=== PATIENT | male | born 1940 | race Caucasian/White ===

== ENCOUNTER → 2016-12-08 | Day surgery (SDC) | payer MEDICARE, MEDICAID ==
[2016-12-08] VITALS (9 sets, daily range): BP systolic 187–214; BP diastolic 57–81
[~2016-12-08] MED LIST: ALPR-340 PO; ASPI-785 PO; CLON0.1T PO; CLOP75TA2 PO; DOXA8TAB81 PO; EZET1TAB7 PO; FENTANYL CITRATE/PF 50MCG/ML 2ML VIAL IV ONE; IOHEXOL-300 100 ML BOTTLE ONE; LAMO100T PO; METO5TAB2 PO; MINO2.5T19 PO; NAPR-679 PO; PHEN50TA PO; SEVE800T PO; SODIUM CHLORIDE 0.9% 10ML VIAL ONE
[2016-12-08 08:55] LABS: BASOPHILS % 0.9 % (0.0-2.0); EOSINOPHILS % 4.7 % (0.0-5.0); HEMATOCRIT. 32.9 % (42.0-52.0); HEMOGLOBIN. 11.5 g/dL (14.0-18.0); LYMPHOCYTES % 25.1 % (20.0-50.0); MEAN CORPUSCULAR HEMOGLOBIN 33.5 pg (28.0-32.0); MEAN CORPUSCULAR HGB CONC 34.9 g/dL (31.0-37.0); MEAN CORPUSCULAR VOLUME 95.9 fL (80.0-94.0); MEAN PLATELET VOLUME 9.1 fl (7.4-10.4); MONOCYTES % 11.3 % (2.0-8.0); PLATELET 159 x1000/uL (130-400); RED BLOOD CELL COUNT 3.43 mill/uL (4.7-6.1); RED CELL DISTRIBUTION WIDTH 13.5 % (11.6-14.6); WHITE BLOOD COUNT 4.5 x1000/uL (4.5-11.0)
[2016-12-08 09:04] LABS: INR 1.1; PROTHROMBIN TIME 11.3 sec
== END | disposition home or self-care (01) ==
LOC: ANGIO 08:40
PROVIDERS: ATTEND Specialist
DX: I12.0 Hypertensive chronic kidney disease with stage 5 chronic kidney disease or end stage renal disease (principal); N18.6 End stage renal disease; E11.9 Type 2 diabetes mellitus without complications; E78.3 Hyperchylomicronemia
CPT/HCPCS: 36415; 36901; 36907; 82947; 84132; 85025; 85610; 85730; A4216; C1725; C1766; C1769; J3010; Q9967

== ENCOUNTER → 2017-02-23 | Day surgery (SDC) | payer MEDICARE, MEDICAID ==
[~2017-02-23] VITALS: Ht 175.3 cm; Wt 82.6 kg
[2017-02-23] VITALS (9 sets, daily range): BP systolic 139–193; BP diastolic 52–64
[~2017-02-23] MED LIST changes: +FENTANYL CITRATE/PF 50MCG/ML 2ML VIAL ONE; +LIDOCAINE HCL 1% 20ML VIAL (Pyxis) INJ ONE; +SODIUM BICARBONATE 4% (2.4MEQ) 5ML VIAL IV ONE; -SODIUM CHLORIDE 0.9% 10ML VIAL ONE
[2017-02-23 08:21] LABS: BASOPHILS % 0.8 % (0.0-2.0); EOSINOPHILS % 0.7 % (0.0-5.0); HEMATOCRIT. 35.1 % (42.0-52.0); LYMPHOCYTES % 16.5 % (20.0-50.0); MEAN CORPUSCULAR HEMOGLOBIN 32.5 pg (28.0-32.0); MEAN CORPUSCULAR VOLUME 94.8 fL (80.0-94.0); MEAN PLATELET VOLUME 8.1 fl (7.4-10.4); MONOCYTES % 5.4 % (2.0-8.0); NEUTROPHILS % 76.6 % (40.0-76.0); PLATELET 233 x1000/uL (130-400); RED CELL DISTRIBUTION WIDTH 14.1 % (11.6-14.6)
[2017-02-23 08:29] LABS: INR 1.1; PARTIAL THROMBOPLASTIN TIME 28.3 sec (24.0-34.0); PROTHROMBIN TIME 11.3 sec
== END | disposition home or self-care (01) ==
LOC: RADANGIO 07:12
PROVIDERS: ATTEND Specialist
DX: Z45.2 Encounter for adjustment and management of vascular access device (principal); I12.0 Hypertensive chronic kidney disease with stage 5 chronic kidney disease or end stage renal disease; E11.22 Type 2 diabetes mellitus with diabetic chronic kidney disease; J44.9 Chronic obstructive pulmonary disease, unspecified; N18.6 End stage renal disease; Z99.2 Dependence on renal dialysis
CPT/HCPCS: 36415; 36902; 36907; 71020; 82947; 84132; 85025; 85610; 85730; 99152; 99153; C1725; C1766; C1769; J1644; J3010; J3490; L8514; Q9967

== ENCOUNTER → 2017-05-04 | Day surgery (SDC) | payer MEDICARE, MEDICAID ==
[2017-05-04] VITALS (10 sets, daily range): BP systolic 154–218; BP diastolic 53–70
[~2017-05-04] VITALS: Ht 175.3 cm; Wt 82.1 kg
[~2017-05-04] MED LIST changes: +CEFAZOLIN 1000MG PREMIX 50 ML IV ONE; +CLOP75TA16 PO; -CLOP75TA2 PO; +FENTANYL CITRATE/PF 50MCG/ML 2ML VIAL IV SCH; +HEPARIN 1000 UNITS/ML 10ML ONE; +HEPARIN 5000 UNITS/ML VIAL IV ONE; +LIP40 PO; +REN800 PO; -SEVE800T PO
[2017-05-04 09:46] LABS: BASOPHILS % 1.1 % (0.0-2.0); EOSINOPHILS % 3.4 % (0.0-5.0); HEMATOCRIT. 34.1 % (42.0-52.0); HEMOGLOBIN. 11.4 g/dL (14.0-18.0); MEAN CORPUSCULAR HEMOGLOBIN 31.8 pg (28.0-32.0); MEAN CORPUSCULAR VOLUME 94.9 fL (80.0-94.0); MONOCYTES % 6.6 % (2.0-8.0); NEUTROPHILS % 59.9 % (40.0-76.0); PLATELET 161 x1000/uL (130-400); RED BLOOD CELL COUNT 3.59 mill/uL (4.7-6.1); RED CELL DISTRIBUTION WIDTH 15.1 % (11.6-14.6)
[2017-05-04 09:55] LABS: INR 1.1; PARTIAL THROMBOPLASTIN TIME 28.7 sec (23.4-31.0)
== END | disposition home or self-care (01) ==
LOC: RADANGIO 09:01
PROVIDERS: ATTEND Specialist
DX: T82.49XA Other complication of vascular dialysis catheter, initial encounter (principal); Y83.9 Surgical procedure, unspecified as the cause of abnormal reaction of the patient, or of later complication, without mention of misadventure at the time of the procedure; Y92.89 Other specified places as the place of occurrence of the external cause
CPT/HCPCS: 36415; 36902; 36907; 76937; 82947; 82962; 84132; 85025; 85610; 85730; 99152; 99153; C1725; C1769; J0690; J1644; J3490; Q9967; J3010

== ENCOUNTER → 2017-07-20 | Day surgery (SDC) | payer MEDICARE, MEDICAID ==
[~2017-07-20] VITALS: Ht 175.3 cm; Wt 79.8 kg
[2017-07-20] VITALS (9 sets, daily range): BP systolic 171–214; BP diastolic 57–67
[~2017-07-20] MED LIST changes: -CEFAZOLIN 1000MG PREMIX 50 ML IV ONE; -HEPARIN 1000 UNITS/ML 10ML ONE; -HEPARIN 5000 UNITS/ML VIAL IV ONE
[2017-07-20 09:37] LABS: BASOPHILS % 1.4 % (0.0-2.0); EOSINOPHILS % 4.4 % (0.0-5.0); HEMATOCRIT. 39.3 % (42.0-52.0); HEMOGLOBIN. 13.3 g/dL (14.0-18.0); LYMPHOCYTES % 23.8 % (20.0-50.0); MEAN CORPUSCULAR HEMOGLOBIN 32.3 pg (28.0-32.0); MEAN CORPUSCULAR VOLUME 95.4 fL (80.0-94.0); MEAN PLATELET VOLUME 8.2 fl (7.4-10.4); MONOCYTES % 9.5 % (2.0-8.0); NEUTROPHILS % 60.9 % (40.0-76.0); PLATELET 206 x1000/uL (130-400); RED BLOOD CELL COUNT 4.13 mill/uL (4.7-6.1)
[2017-07-20 09:49] LABS: INR 1.1; PARTIAL THROMBOPLASTIN TIME 28.3 sec (23.4-31.0)
== END | disposition home or self-care (01) ==
LOC: RAD 09:07
PROVIDERS: ATTEND Specialist
DX: N18.6 End stage renal disease (principal); T82.858A Stenosis of other vascular prosthetic devices, implants and grafts, initial encounter; Y83.8 Other surgical procedures as the cause of abnormal reaction of the patient, or of later complication, without mention of misadventure at the time of the procedure; Y92.89 Other specified places as the place of occurrence of the external cause
CPT/HCPCS: 36415; 36901; 36907; 82947; 84132; 85025; 85610; 85730; 99152; 99153; C1725; C1769; J1644; J3010; J3490; Q9967; J7050

== ENCOUNTER → 2017-11-11 | Day surgery (SDC) | payer MEDICARE, MEDICAID ==
[~2017-11-11] VITALS: Ht 172.7 cm; Wt 78.9 kg
[2017-11-11] VITALS (11 sets, daily range): BP systolic 171–191; BP diastolic 54–64
[~2017-11-11] MED LIST changes: -FENTANYL CITRATE/PF 50MCG/ML 2ML VIAL IV SCH; -LIDOCAINE HCL 1% 20ML VIAL (Pyxis) INJ ONE
[2017-11-11 07:29] LABS: BASOPHILS % 0.9 % (0.0-2.0); EOSINOPHILS % 4.6 % (0.0-5.0); HEMATOCRIT. 37.2 % (42.0-52.0); HEMOGLOBIN. 12.3 g/dL (14.0-18.0); LYMPHOCYTES % 24.8 % (20.0-50.0); MEAN CORPUSCULAR HEMOGLOBIN 31.2 pg (28.0-32.0); MEAN CORPUSCULAR VOLUME 94.1 fL (80.0-94.0); MEAN PLATELET VOLUME 8.6 fl (7.4-10.4); MONOCYTES % 10.3 % (2.0-8.0); NEUTROPHILS % 59.4 % (40.0-76.0); PLATELET 153 x1000/uL (130-400); RED BLOOD CELL COUNT 3.96 mill/uL (4.7-6.1); RED CELL DISTRIBUTION WIDTH 16.6 % (11.6-14.6)
[2017-11-11 07:33] LABS: INR 1.1; PARTIAL THROMBOPLASTIN TIME 28.5 sec (23.4-31.0); PROTHROMBIN TIME 11.3 sec (9.4-11.6)
== END | disposition home or self-care (01) ==
LOC: RADANGIO 07:02
PROVIDERS: ATTEND Specialist
DX: I82.B29 Chronic embolism and thrombosis of unspecified subclavian vein (principal); E11.22 Type 2 diabetes mellitus with diabetic chronic kidney disease; I12.0 Hypertensive chronic kidney disease with stage 5 chronic kidney disease or end stage renal disease; N18.6 End stage renal disease; Z95.1 Presence of aortocoronary bypass graft
CPT/HCPCS: 36415; 36902; 36907; 82947; 84132; 85025; 85610; 85730; 93454; C1725; C1766; C1769; C1887; J1644; J3010; J3490; Q9967; J7050

== ENCOUNTER → 2018-01-26 | Outpatient (CLI) | payer MEDICARE, MEDICAID ==
[~2018-01-26] MED LIST changes: -EZET1TAB7 PO; -FENTANYL CITRATE/PF 50MCG/ML 2ML VIAL IV ONE; -FENTANYL CITRATE/PF 50MCG/ML 2ML VIAL ONE; -IOHEXOL-300 100 ML BOTTLE ONE; -SODIUM BICARBONATE 4% (2.4MEQ) 5ML VIAL IV ONE; +TRAV2.5D EACHEYE
== END | disposition home or self-care (01) ==
LOC: US 16:09
PROVIDERS: ATTEND Internal Medicine Gastroenterology
DX: K80.20 Calculus of gallbladder without cholecystitis without obstruction (principal); R16.0 Hepatomegaly, not elsewhere classified; K76.89 Other specified diseases of liver
CPT/HCPCS: 76700

== ENCOUNTER → 2018-03-24 | Day surgery (SDC) | payer MEDICARE, MEDICAID ==
[2018-03-24] VITALS (16 sets, daily range): BP systolic 162–190; BP diastolic 51–68
[~2018-03-24] VITALS: Ht 170.2 cm; Wt 77.6 kg
[~2018-03-24] MED LIST changes: +CEFAZOLIN 1000MG PREMIX 50 ML IV ONE; +FENTANYL CITRATE/PF 50MCG/ML 2ML VIAL IV ONE; +FENTANYL CITRATE/PF 50MCG/ML 2ML VIAL ONE; +HEPARIN 1000 UNITS/ML 10ML IV ONE; +HEPARIN 1000 UNITS/ML 10ML ONE; +HEPARIN 5000 UNITS/ML VIAL IV ONE; +IOHEXOL-300 100 ML BOTTLE ONE; +LIDOCAINE HCL 1% 20ML VIAL (Pyxis) INJ ONE; +SODIUM BICARBONATE 4% (2.4MEQ) 5ML VIAL IV ONE
[2018-03-24 09:09] LABS: EOSINOPHILS % 3.5 % (0.0-5.0); HEMATOCRIT. 35.4 % (42.0-52.0); HEMOGLOBIN. 11.8 g/dL (14.0-18.0); LYMPHOCYTES % 19.8 % (20.0-50.0); MEAN CORPUSCULAR HEMOGLOBIN 31.4 pg (28.0-32.0); MEAN CORPUSCULAR VOLUME 94.4 fL (80.0-94.0); NEUTROPHILS % 66.7 % (40.0-76.0); PLATELET 164 x1000/uL (130-400); RED BLOOD CELL COUNT 3.75 mill/uL (4.7-6.1); RED CELL DISTRIBUTION WIDTH 17.6 % (11.6-14.6)
[2018-03-24 09:19] LABS: INR 1.1; PARTIAL THROMBOPLASTIN TIME 28.1 sec (23.4-31.0)
== END | disposition home or self-care (01) ==
LOC: ANGIO 08:16
PROVIDERS: ATTEND Specialist
DX: I87.1 Compression of vein (principal); I13.11 Hypertensive heart and chronic kidney disease without heart failure, with stage 5 chronic kidney disease, or end stage renal disease; E78.5 Hyperlipidemia, unspecified; E11.22 Type 2 diabetes mellitus with diabetic chronic kidney disease; G47.30 Sleep apnea, unspecified; M48.061 Spinal stenosis, lumbar region without neurogenic claudication; N18.6 End stage renal disease; Z88.8 Allergy status to other drugs, medicaments and biological substances; Z95.1 Presence of aortocoronary bypass graft; Z98.42 Cataract extraction status, left eye; Z98.41 Cataract extraction status, right eye
CPT/HCPCS: 36415; 36902; 36907; 76937; 82947; 82962; 84132; 85025; 85610; 85730; 99152; 99153; C1725; C1766; C1769; J0690; J1644; J3010; J3490; Q9967; J7050

== ENCOUNTER → 2018-04-10 | Outpatient (CLI) | payer MEDICARE, MEDICAID ==
[~2018-04-10] MED LIST changes: -CEFAZOLIN 1000MG PREMIX 50 ML IV ONE; -FENTANYL CITRATE/PF 50MCG/ML 2ML VIAL IV ONE; -FENTANYL CITRATE/PF 50MCG/ML 2ML VIAL ONE; -HEPARIN 1000 UNITS/ML 10ML IV ONE; -HEPARIN 1000 UNITS/ML 10ML ONE; -HEPARIN 5000 UNITS/ML VIAL IV ONE; -IOHEXOL-300 100 ML BOTTLE ONE; -LIDOCAINE HCL 1% 20ML VIAL (Pyxis) INJ ONE; -SODIUM BICARBONATE 4% (2.4MEQ) 5ML VIAL IV ONE
== END | disposition home or self-care (01) ==
LOC: RAD 10:49
PROVIDERS: ATTEND Internal Medicine Critical Care Medicine
DX: I70.0 Atherosclerosis of aorta (principal); I12.0 Hypertensive chronic kidney disease with stage 5 chronic kidney disease or end stage renal disease; E11.22 Type 2 diabetes mellitus with diabetic chronic kidney disease; N18.6 End stage renal disease
CPT/HCPCS: 71046

== ENCOUNTER → 2018-07-14 | Day surgery (SDC) | payer MEDICARE, MEDICAID ==
[2018-07-14] VITALS (11 sets, daily range): BP systolic 157–187; BP diastolic 54–75
[~2018-07-14] VITALS: Ht 170.2 cm; Wt 67.1 kg
[~2018-07-14] MED LIST changes: +FENTANYL CITRATE/PF 50MCG/ML 2ML VIAL IV ONE; +FENTANYL CITRATE/PF 50MCG/ML 2ML VIAL ONE; +IOHEXOL-300 100 ML BOTTLE ONE; +LIDOCAINE HCL 1% 20ML VIAL (Pyxis) INJ ONE; +SODIUM BICARBONATE 4% (2.4MEQ) 5ML VIAL IV ONE
== END | disposition home or self-care (01) ==
LOC: RADANGIO 09:01
PROVIDERS: ATTEND Specialist
DX: I87.1 Compression of vein (principal); Z79.82 Long term (current) use of aspirin; Z79.899 Other long term (current) drug therapy
CPT/HCPCS: 36415; 36902; 82947; 84132; 99152; 99153; C1766; C1769; J1644; J3010; J3490; Q9967; 36905; 36907; C1725

== ENCOUNTER 2018-08-23 06:17 | Day surgery (SDC) | payer MEDICARE, MEDICAID ==
[~2018-08-23] VITALS: Ht 172.7 cm; Wt 74.4 kg
[~2018-08-23 06:17] MED LIST changes: +ASPI-1159 PO; -ASPI-785 PO; -FENTANYL CITRATE/PF 50MCG/ML 2ML VIAL IV ONE; -FENTANYL CITRATE/PF 50MCG/ML 2ML VIAL ONE; +FOLI1TAB87 PO; +INSNOV SUBCUT; -IOHEXOL-300 100 ML BOTTLE ONE; +LAMO100T65 PO; -LIDOCAINE HCL 1% 20ML VIAL (Pyxis) INJ ONE; +OMEP40CA34 PO; +PHEN100C12 PO; -PHEN50TA PO; -SODIUM BICARBONATE 4% (2.4MEQ) 5ML VIAL IV ONE
[2018-08-23] MEDS ORDERED: SODIUM CHLORIDE 0.9% 500 ML IV ONE (06:40)
[2018-08-23] MEDS ORDERED: MIDAZOLAM HCL 2 MG/2 ML VIAL ONE (07:25)
[2018-08-23] MEDS ORDERED: FENTANYL CITRATE/PF 50MCG/ML 2ML VIAL ONE (07:25)
[2018-08-23] MEDS ORDERED: PROPOFOL 200MG/20ML VIAL IV ONE ×2 (07:25→08:40)
[2018-08-23] MEDS ORDERED: DEXAMETHASONE 4MG/ML 1ML VIAL ONE (07:26)
[2018-08-23] MEDS ORDERED: ONDANSETRON HCL 4MG/2ML INJ ONE (07:26)
[2018-08-23] MEDS ORDERED: SKIN ADHESIVE 0.7 GM EA TOP ONE (07:27)
[2018-08-23] MEDS ORDERED: BUPIVACAINE HCL 0.5% (5MG/ML) 50ML ONE (07:28)
[2018-08-23] MEDS ORDERED: LIDOCAINE HCL/PF 1% 10 MG/ML 5ML VIAL ONE (07:49)
[2018-08-23] MEDS ORDERED: SODIUM CHLORIDE 0.9% 10ML VIAL ONE ×2 (07:49→08:00)
[2018-08-23] MEDS ORDERED: EPHEDRINE SULFATE 50MG/ML VIAL ONE (07:49)
[2018-08-23] MEDS ORDERED: HYDROMORPHONE HCL/PF 2MG/ML CPJ IV PRN (08:00)
[2018-08-23] MEDS ORDERED: LABETALOL HCL 20MG/4ML CARPUJECT IV PRN (08:00)
[2018-08-23] MEDS ORDERED: CEFAZOLIN SODIUM 1000MG/VIAL ONE (08:00)
[2018-08-23] MEDS ORDERED: ONDANSETRON HCL 4MG/2ML INJ IV PRN (08:00)
[2018-08-23] MEDS ORDERED: MEPERIDINE HCL/PF 25MG/ML CPJ IV PRN (08:00)
[2018-08-23] MEDS ORDERED: BACITRACIN 15GM TUBE TOP ONE (08:39)
== END 2018-08-23 13:05 | disposition home or self-care (01) ==
LOC: OR 06:17
PROVIDERS: ATTEND Surgery
DX: K43.9 Ventral hernia without obstruction or gangrene (principal); E11.319 Type 2 diabetes mellitus with unspecified diabetic retinopathy without macular edema; E11.40 Type 2 diabetes mellitus with diabetic neuropathy, unspecified; I25.10 Atherosclerotic heart disease of native coronary artery without angina pectoris; N18.6 End stage renal disease; I12.0 Hypertensive chronic kidney disease with stage 5 chronic kidney disease or end stage renal disease; E11.22 Type 2 diabetes mellitus with diabetic chronic kidney disease; Z99.2 Dependence on renal dialysis; Z95.1 Presence of aortocoronary bypass graft; Z90.49 Acquired absence of other specified parts of digestive tract; Z88.6 Allergy status to analgesic agent; Z87.442 Personal history of urinary calculi; Z79.899 Other long term (current) drug therapy; Z98.890 Other specified postprocedural states
CPT/HCPCS: 36415; 49560; 49568; 71045; 82962; 84132; A4216; C1781; J0690; J1100; J2250; J2405; J3010; J3490; J2704

== ENCOUNTER → 2018-10-25 | Outpatient (CLI) | payer MEDICARE, MEDICAID | END | disposition home or self-care (01) | LOC: RAD 08:44 | PROVIDERS: ATTEND Internal Medicine Nephrology | DX: R91.8 Other nonspecific abnormal finding of lung field (principal) | CPT/HCPCS: 71045 ==

== ENCOUNTER 2018-12-29 11:20 | Day surgery (SDC) | payer MEDICARE, MEDICAID ==
[~2018-12-29] VITALS: Ht 175.3 cm; Wt 74.8 kg
[2018-12-29] MEDS ORDERED: HEPARIN SODIUM 1,000 UNIT/1ML VIAL IV ONE (11:21)
[2018-12-29] MEDS ORDERED: MIDAZOLAM HCL 2 MG/2 ML VIAL ONE (12:49)
[2018-12-29] MEDS ORDERED: LIDOCAINE HCL 1% 20ML VIAL (Pyxis) INJ ONE (12:49)
[2018-12-29] MEDS ORDERED: FENTANYL CITRATE/PF 50MCG/ML 2ML VIAL ONE (12:49)
[2018-12-29] MEDS ORDERED: ASPIRIN/SOD BICARB/CITRIC ACID 324MG TAB EFF ONE (12:50)
[2018-12-29] MEDS ORDERED: IODIXANOL 320MG/ML 100 ML BOTTLE IV ONE (12:50)
[2018-12-29] MEDS ORDERED: MORPHINE SULFATE 2 MG/ML CPJ (NOT FOR IM USE) IV PRN (13:45)
[2018-12-29] MEDS ORDERED: ACETAMINOPHEN 325MG TABLET PO PRN (13:45)
[2018-12-29] MEDS ORDERED: ATROPINE SULFATE 1MG/10ML SYR IV PRN (13:45)
[2018-12-29] MEDS ORDERED: ONDANSETRON HCL 4MG/2ML INJ IV PRN (13:45)
== END 2018-12-29 19:00 | disposition home or self-care (01) ==
LOC: CCL 11:20
PROVIDERS: ATTEND Specialist
DX: I25.810 Atherosclerosis of coronary artery bypass graft(s) without angina pectoris (principal); I12.9 Hypertensive chronic kidney disease with stage 1 through stage 4 chronic kidney disease, or unspecified chronic kidney disease; E11.22 Type 2 diabetes mellitus with diabetic chronic kidney disease; N18.9 Chronic kidney disease, unspecified; E11.43 Type 2 diabetes mellitus with diabetic autonomic (poly)neuropathy; K31.84 Gastroparesis; G47.30 Sleep apnea, unspecified; G40.909 Epilepsy, unspecified, not intractable, without status epilepticus; D63.8 Anemia in other chronic diseases classified elsewhere; N25.81 Secondary hyperparathyroidism of renal origin; Z98.890 Other specified postprocedural states; Z99.2 Dependence on renal dialysis
CPT/HCPCS: 82962; 93005; 93459; C1760; C1769; C1893; J1644; J2250; J3490; Q9967; J3010

== ENCOUNTER 2019-04-13 08:51 | Day surgery (SDC) | payer MEDICARE, MEDICAID ==
[~2019-04-13] VITALS: Ht 172.7 cm; Wt 72.4 kg
[~2019-04-13 08:51] MED LIST changes: -ASPI-1159 PO; +ASPI-1393 PO; -CLOP75TA16 PO; +CLOP75TA4 PO
[2019-04-13] MEDS ORDERED: SODIUM CHLORIDE 0.9% 500 ML IV NR (10:15)
[2019-04-13 11:07] LABS: BASOPHILS % 1.2 % (0.0-2.0); HEMOGLOBIN. 12.6 g/dL (14.0-18.0); LYMPHOCYTES % 12.8 % (20.0-50.0); MEAN CORPUSCULAR HEMOGLOBIN 34.5 pg (28.0-32.0); MEAN CORPUSCULAR VOLUME 104.1 fL (80.0-94.0); MEAN PLATELET VOLUME 9.5 fl (7.4-10.4); MONOCYTES % 6.7 % (2.0-8.0); NEUTROPHILS % 78.3 % (40.0-76.0); PLATELET 166 x1000/uL (130-400); RED BLOOD CELL COUNT 3.65 mill/uL (4.7-6.1); RED CELL DISTRIBUTION WIDTH 17.4 % (11.6-14.6)
[2019-04-13 11:15] LABS: INR 1.1; PARTIAL THROMBOPLASTIN TIME 30.6 sec (23.4-31.0); PROTHROMBIN TIME 11.5 sec (9.6-11.0)
[2019-04-13] MEDS ORDERED: MIDAZOLAM HCL 2 MG/2 ML VIAL ONE (11:53)
[2019-04-13] MEDS ORDERED: PROPOFOL 200MG/20ML VIAL IV ONE (11:53)
[2019-04-13] MEDS ORDERED: SIMETHICONE 40 MG/0.6 ML 30ML ONE (12:07)
[2019-04-13] MEDS ORDERED: FLUMAZENIL 0.1 MG/ML 5ML VIAL IV ONE (12:34)
== END 2019-04-13 14:25 | disposition home or self-care (01) ==
LOC: OR 08:51
PROVIDERS: ATTEND Internal Medicine Gastroenterology
DX: K29.50 Unspecified chronic gastritis without bleeding (principal); K21.0 Gastro-esophageal reflux disease with esophagitis; K44.9 Diaphragmatic hernia without obstruction or gangrene; I12.0 Hypertensive chronic kidney disease with stage 5 chronic kidney disease or end stage renal disease; E11.22 Type 2 diabetes mellitus with diabetic chronic kidney disease; N18.6 End stage renal disease; I25.2 Old myocardial infarction; E66.3 Overweight; D64.9 Anemia, unspecified; G47.30 Sleep apnea, unspecified; H40.9 Unspecified glaucoma; E11.39 Type 2 diabetes mellitus with other diabetic ophthalmic complication; I25.10 Atherosclerotic heart disease of native coronary artery without angina pectoris; E78.00 Pure hypercholesterolemia, unspecified; I45.10 Unspecified right bundle-branch block; Z68.24 Body mass index [BMI] 24.0-24.9, adult; Z79.82 Long term (current) use of aspirin; Z79.4 Long term (current) use of insulin; Z82.49 Family history of ischemic heart disease and other diseases of the circulatory system; Z82.5 Family history of asthma and other chronic lower respiratory diseases; Z82.3 Family history of stroke
CPT/HCPCS: 36415; 43239; 80048; 82962; 85025; 85610; 85730; 88305; 88312; 88313; 93005; J2250; J2704; J3490

== ENCOUNTER 2019-05-10 08:49 | Inpatient (IN) | payer MEDICARE, MEDICAID ==
[~2019-05-10] VITALS: Ht 172.7 cm; Wt 78.7 kg
[~2019-05-10 08:49] MED LIST changes: -DOXA8TAB81 PO; -LIP40 PO; -METO5TAB2 PO; -MINO2.5T19 PO
[2019-05-10] MEDS ORDERED: PIPERACILLIN/TAZ 3.375G PREMIX 50 ML IV ONE (09:45)
[2019-05-10] MEDS ORDERED: VANCOMYCIN 1 G PREMIX 200 ML IV ONE (09:45)
[2019-05-10 10:15] LABS: HEMATOCRIT. 38.9 % (42.0-52.0); HEMOGLOBIN. 13.3 g/dL (14.0-18.0); MEAN CORPUSCULAR HEMOGLOBIN 35.6 pg (28.0-32.0); MEAN CORPUSCULAR VOLUME 104.2 fL (80.0-94.0); MEAN PLATELET VOLUME 10.7 fl (7.4-10.4); PLATELET 187 x1000/uL (130-400); RED BLOOD CELL COUNT 3.73 mill/uL (4.7-6.1); RED CELL DISTRIBUTION WIDTH 19.1 % (11.6-14.6)
[2019-05-10 10:23] LABS: CHLORIDE 92 mEq/L (98-107); INR 1.1; PROTHROMBIN TIME 11.6 sec (9.6-11.0)
[2019-05-10 10:39] LABS: BG BASE EXCESS 2.8 mmol/L (-2.0-2.0); BG CARBOXYHEMOGLOBIN 0.9 % (0.5-1.5); BG DEOXYHEMOGLOBIN 1.6 % (0.0-5.0); BG FRACTION INSPIRED OXYGEN 28; BG HCO3 ACT 27.4 mmol/L (22.0-26.0); BG METHEMOGLOBIN 0.2 % (0.0-1.5); BG OXYGEN SATURATION 98.4 % (92.0-98.5); BG OXYHEMOGLOBIN 97.3 % (94.0-97.0); BG PCO2 42.1 mmHg (35.0-45.0); BG PH 7.432 (7.350-7.450); BG PO2 126.1 mmHg (75.0-100.0); BG SAMPLE SITE RIGHT BRACHIAL; BG TOTAL HEMOGLOBIN 13.2 g/dL (12.0-18.0); BG VENT MODE NASAL CANNULA
[2019-05-10 10:43] LABS: PLATELET ESTIMATE NORMAL
[2019-05-10] MEDS ORDERED: ACETAMINOPHEN 325MG TABLET PO PRN (13:00)
[2019-05-10] MEDS ORDERED: ONDANSETRON HCL 4MG/2ML INJ IV PRN (13:00)
[2019-05-10] MEDS ORDERED: CLONIDINE 0.1MG TABLET PO PRN (13:00)
[2019-05-10 14:27] VITALS: BP 112/24
[2019-05-10] MEDS ORDERED: PIPERACILLIN/TAZOBACTAM 3.375 G in DEXT 5% WATER 100 ML IV SCH (14:30)
[2019-05-10] MEDS: EZETIMIBE 10MG TABLET PO SCH (14:48)
[2019-05-10] MEDS: CLOPIDOGREL 75MG TABLET PO SCH (14:48)
[2019-05-10] MEDS: ASPIRIN 81MG EC TABLET PO SCH (14:48)
[2019-05-10] MEDS: PIPERACILLIN/TAZOBACTAM 2.25 G in DEXTROSE 5% WATER 50 ML IV SCH ×2 (16:35→23:30)
[2019-05-10 20:00] VITALS: BP 109/56
[2019-05-10] MEDS ORDERED: DEXTROSE 50% WATER 50ML SYRINGE IV PRN (21:30)
[2019-05-10] MEDS: INSULIN LISPRO 100 UNITS/ML SUBCUT SCH (21:30)
[2019-05-10] MEDS: ATORVASTATIN CALCIUM 20MG TABLET PO SCH (21:32)
[2019-05-10] MEDS ORDERED: VANCOMYCIN 750 MG PREMIX 150 ML IV NR (22:00)
[2019-05-10] MEDS: BLOOD SUGAR DIAGNOSTIC STRIP TEST SCH (22:14)
[2019-05-10] MEDS: MORPHINE SULFATE 2 MG/ML CPJ (NOT FOR IM USE) IV PRN (22:19)
[2019-05-11] VITALS (8 sets, daily range): BP systolic 103–141; BP diastolic 46–85
[2019-05-11] MEDS: INSULIN LISPRO 100 UNITS/ML SUBCUT SCH ×4 (07:25→21:00)
[2019-05-11] MEDS: BLOOD SUGAR DIAGNOSTIC STRIP TEST SCH ×4 (07:25→21:18)
[2019-05-11] MEDS: SEVELAMER CARBONATE 800 MG TABLET PO SCH ×4 (07:40→17:53)
[2019-05-11 07:56] LABS: CHLORIDE 99 mEq/L (98-107)
[2019-05-11 08:06] LABS: PHOSPHORUS 2.7 mg/dL (2.5-4.9)
[2019-05-11] MEDS: ASPIRIN 81MG EC TABLET PO SCH (09:00)
[2019-05-11] MEDS: CLOPIDOGREL 75MG TABLET PO SCH (09:00)
[2019-05-11] MEDS: PIPERACILLIN/TAZOBACTAM 2.25 G in DEXTROSE 5% WATER 50 ML IV SCH ×2 (09:22→17:40)
[2019-05-11] MEDS: FOLIC ACID/VITAMIN B COMP W-C TABLET PO SCH (09:22)
[2019-05-11] MEDS: EZETIMIBE 10MG TABLET PO SCH (09:23)
[2019-05-11] MEDS: MORPHINE SULFATE 2 MG/ML CPJ (NOT FOR IM USE) IV PRN (09:44)
[2019-05-11] MEDS ORDERED: HEPARIN SODIUM 1,000 UNIT/1ML VIAL IV ONE (10:10)
[2019-05-11] MEDS ORDERED: LIDOCAINE HCL 1% 20ML VIAL (Pyxis) INJ ONE (12:48)
[2019-05-11] MEDS ORDERED: IODIXANOL 320MG/ML 100 ML BOTTLE IV ONE (12:48)
[2019-05-11] MEDS ORDERED: FENTANYL CITRATE/PF 50MCG/ML 2ML VIAL ONE (12:55)
[2019-05-11] MEDS ORDERED: MIDAZOLAM HCL 2 MG/2 ML VIAL ONE (12:55)
[2019-05-11] MEDS ORDERED: IOHEXOL-300 100 ML BOTTLE ONE (13:23)
[2019-05-11] MEDS ORDERED: CLOPIDOGREL 75MG TABLET ONE (13:57)
[2019-05-11] MEDS ORDERED: ASPIRIN 325MG EC TABLET PO ONE (13:57)
[2019-05-11] MEDS ORDERED: MORPHINE SULFATE 2 MG/ML CPJ (NOT FOR IM USE) IV PRN (14:00)
[2019-05-11] MEDS ORDERED: ACETAMINOPHEN 325MG TABLET PO PRN (14:00)
[2019-05-11] MEDS ORDERED: CLOPIDOGREL 75MG TABLET PO ONE (14:00)
[2019-05-11] MEDS ORDERED: ATROPINE SULFATE 1MG/10ML SYR IV PRN (14:00)
[2019-05-11 16:53] LABS: HEMATOCRIT. 38.5 % (42.0-52.0); HEMOGLOBIN. 12.6 g/dL (14.0-18.0); MEAN CORPUSCULAR HEMOGLOBIN 35.1 pg (28.0-32.0); MEAN CORPUSCULAR VOLUME 107.2 fL (80.0-94.0); MEAN PLATELET VOLUME 9.7 fl (7.4-10.4); PLATELET 146 x1000/uL (130-400); RED BLOOD CELL COUNT 3.59 mill/uL (4.7-6.1); RED CELL DISTRIBUTION WIDTH 19.5 % (11.6-14.6)
[2019-05-11 18:39] LABS: PLATELET ESTIMATE NORMAL
[2019-05-11] MEDS ORDERED: ATROPINE SULFATE 1MG/10ML SYR ONE (22:00)
[2019-05-11] MEDS: ATORVASTATIN CALCIUM 20MG TABLET PO SCH (22:05)
[2019-05-12] VITALS (13 sets, daily range): BP systolic 95–130; BP diastolic 49–76
[2019-05-12] MEDS: HYDROCODONE/ACETAMINOPHEN 5/325MG TABLET PO PRN (01:24)
[2019-05-12] MEDS: PIPERACILLIN/TAZOBACTAM 2.25 G in DEXTROSE 5% WATER 50 ML IV SCH ×3 (01:24→15:42)
[2019-05-12] MEDS: BLOOD SUGAR DIAGNOSTIC STRIP TEST SCH ×4 (06:02→21:11)
[2019-05-12] MEDS: INSULIN LISPRO 100 UNITS/ML SUBCUT SCH ×4 (07:20→21:00)
[2019-05-12] MEDS: CLOPIDOGREL 75MG TABLET PO SCH (08:54)
[2019-05-12] MEDS: ASPIRIN 81MG EC TABLET PO SCH (08:54)
[2019-05-12 09:57] LABS: HEMOGLOBIN. 11.4 g/dL (14.0-18.0); MEAN CORPUSCULAR HEMOGLOBIN 35.2 pg (28.0-32.0); MEAN CORPUSCULAR VOLUME 105.6 fL (80.0-94.0); MEAN PLATELET VOLUME 9.9 fl (7.4-10.4); PLATELET 149 x1000/uL (130-400); RED BLOOD CELL COUNT 3.22 mill/uL (4.7-6.1)
[2019-05-12] MEDS: SEVELAMER CARBONATE 800 MG TABLET PO SCH ×3 (10:02→17:20)
[2019-05-12] MEDS: ONDANSETRON HCL 4MG/2ML INJ IV PRN (10:03)
[2019-05-12] MEDS: FOLIC ACID/VITAMIN B COMP W-C TABLET PO SCH (10:03)
[2019-05-12] MEDS: SUCRALFATE 1 G/10 ML UDC PO SCH ×3 (12:27→21:00)
[2019-05-12] MEDS: EZETIMIBE 10MG TABLET PO SCH (13:54)
[2019-05-12 16:00] LABS: PLATELET ESTIMATE NORMAL
[2019-05-12] MEDS ORDERED: METOCLOPRAMIDE HCL 10MG/2ML VIAL IV PRN (16:15)
[2019-05-12] MEDS ORDERED: VANCOMYCIN 1250MG in DEXTROSE 5% WATER 250ML IV NR (22:00)
[2019-05-12] MEDS: ATORVASTATIN CALCIUM 20MG TABLET PO SCH (22:04)
[2019-05-12 22:07] LABS: BG BASE EXCESS -1.3 mmol/L (-2.0-2.0); BG CARBOXYHEMOGLOBIN 0.4 % (0.5-1.5); BG DEOXYHEMOGLOBIN 1.5 % (0.0-5.0); BG FRACTION INSPIRED OXYGEN 32; BG HCO3 ACT 22.7 mmol/L (22.0-26.0); BG OXYGEN SATURATION 98.5 % (92.0-98.5); BG OXYHEMOGLOBIN 98.1 % (94.0-97.0); BG PCO2 36.2 mmHg (35.0-45.0); BG PH 7.416 (7.350-7.450); BG PO2 131.6 mmHg (75.0-100.0); BG SAMPLE SITE LEFT BRACHIAL; BG TOTAL HEMOGLOBIN 13.1 g/dL (12.0-18.0); BG VENT MODE NASAL CANNULA
[2019-05-12] MEDS: IPRATROPIUM/ALBUTEROL 0.5-3(2.5)MG/3ML NEB HHN SCH (22:08)
[2019-05-13] VITALS (12 sets, daily range): BP systolic 101–126; BP diastolic 39–66
[2019-05-13] MEDS: PIPERACILLIN/TAZOBACTAM 2.25 G in DEXTROSE 5% WATER 50 ML IV SCH ×3 (00:59→17:52)
[2019-05-13] MEDS: IPRATROPIUM/ALBUTEROL 0.5-3(2.5)MG/3ML NEB HHN SCH ×4 (01:16→20:33)
[2019-05-13] MEDS: SUCRALFATE 1 G/10 ML UDC PO SCH ×4 (06:34→21:00)
[2019-05-13] MEDS: BLOOD SUGAR DIAGNOSTIC STRIP TEST SCH ×4 (06:34→21:23)
[2019-05-13] MEDS: INSULIN LISPRO 100 UNITS/ML SUBCUT SCH ×4 (07:20→21:00)
[2019-05-13] MEDS: SEVELAMER CARBONATE 800 MG TABLET PO SCH ×3 (07:20→17:01)
[2019-05-13] MEDS: CLOPIDOGREL 75MG TABLET PO SCH (08:26)
[2019-05-13] MEDS: FOLIC ACID/VITAMIN B COMP W-C TABLET PO SCH (08:26)
[2019-05-13] MEDS: EZETIMIBE 10MG TABLET PO SCH (08:26)
[2019-05-13] MEDS: ASPIRIN 81MG EC TABLET PO SCH (08:26)
[2019-05-13] MEDS: ATORVASTATIN CALCIUM 20MG TABLET PO SCH (21:29)
[2019-05-13] MEDS: HYDROCODONE/ACETAMINOPHEN 5/325MG TABLET PO PRN (23:46)
[2019-05-14] VITALS (12 sets, daily range): BP systolic 92–121; BP diastolic 45–69
[2019-05-14] MEDS: IPRATROPIUM/ALBUTEROL 0.5-3(2.5)MG/3ML NEB HHN SCH ×4 (00:37→21:33)
[2019-05-14] MEDS: PIPERACILLIN/TAZOBACTAM 2.25 G in DEXTROSE 5% WATER 50 ML IV SCH ×3 (01:13→16:24)
[2019-05-14] MEDS: SUCRALFATE 1 G/10 ML UDC PO SCH ×4 (04:33→20:33)
[2019-05-14] MEDS: BLOOD SUGAR DIAGNOSTIC STRIP TEST SCH ×4 (06:33→21:56)
[2019-05-14 07:05] LABS: HEMATOCRIT. 35.6 % (42.0-52.0); HEMOGLOBIN. 12.3 g/dL (14.0-18.0); MEAN CORPUSCULAR HEMOGLOBIN 35.7 pg (28.0-32.0); MEAN CORPUSCULAR VOLUME 103.5 fL (80.0-94.0); MEAN PLATELET VOLUME 9.5 fl (7.4-10.4); PLATELET 179 x1000/uL (130-400); RED BLOOD CELL COUNT 3.44 mill/uL (4.7-6.1); RED CELL DISTRIBUTION WIDTH 19.6 % (11.6-14.6)
[2019-05-14] MEDS: SEVELAMER CARBONATE 800 MG TABLET PO SCH ×3 (07:20→16:25)
[2019-05-14] MEDS: INSULIN LISPRO 100 UNITS/ML SUBCUT SCH ×4 (07:20→21:00)
[2019-05-14] MEDS: EZETIMIBE 10MG TABLET PO SCH (08:49)
[2019-05-14] MEDS: FOLIC ACID/VITAMIN B COMP W-C TABLET PO SCH (08:49)
[2019-05-14] MEDS: ASPIRIN 81MG EC TABLET PO SCH (08:49)
[2019-05-14] MEDS: CLOPIDOGREL 75MG TABLET PO SCH (09:00)
[2019-05-14] MEDS ORDERED: METOCLOPRAMIDE HCL 10MG/2ML VIAL IV PRN (11:45)
[2019-05-14 14:24] LABS: NUCLEATED RED BLOOD CELLS 1 /100 WBC; PLATELET ESTIMATE NORMAL
[2019-05-14] MEDS: ATORVASTATIN CALCIUM 20MG TABLET PO SCH (21:00)
[2019-05-14 22:04] LABS: HEMATOCRIT 36.8 % (42.0-52.0); HEMOGLOBIN 12.2 g/dL (14.0-18.0)
[2019-05-14 22:07] LABS: INR 1.2; PROTHROMBIN TIME 12.6 sec (9.6-11.0)
[2019-05-15] VITALS (15 sets, daily range): BP systolic 110–127; BP diastolic 51–71
[2019-05-15] MEDS: PIPERACILLIN/TAZOBACTAM 2.25 G in DEXTROSE 5% WATER 50 ML IV SCH ×3 (00:09→16:10)
[2019-05-15] MEDS: IPRATROPIUM/ALBUTEROL 0.5-3(2.5)MG/3ML NEB HHN SCH ×4 (01:09→21:15)
[2019-05-15] MEDS: SUCRALFATE 1 G/10 ML UDC PO SCH ×4 (05:20→22:12)
[2019-05-15 05:36] LABS: HEMATOCRIT. 37.9 % (42.0-52.0); HEMOGLOBIN. 12.9 g/dL (14.0-18.0); MEAN CORPUSCULAR HEMOGLOBIN 35.3 pg (28.0-32.0); MEAN CORPUSCULAR VOLUME 103.4 fL (80.0-94.0); MEAN PLATELET VOLUME 9.6 fl (7.4-10.4); PLATELET 185 x1000/uL (130-400); RED BLOOD CELL COUNT 3.66 mill/uL (4.7-6.1); RED CELL DISTRIBUTION WIDTH 18.7 % (11.6-14.6)
[2019-05-15] MEDS: INSULIN LISPRO 100 UNITS/ML SUBCUT SCH ×4 (07:20→22:21)
[2019-05-15] MEDS: SEVELAMER CARBONATE 800 MG TABLET PO SCH ×3 (07:20→17:08)
[2019-05-15] MEDS: BLOOD SUGAR DIAGNOSTIC STRIP TEST SCH ×4 (07:39→22:21)
[2019-05-15] MEDS: CLOPIDOGREL 75MG TABLET PO SCH (09:00)
[2019-05-15] MEDS: FOLIC ACID/VITAMIN B COMP W-C TABLET PO SCH (09:00)
[2019-05-15] MEDS: ASPIRIN 81MG EC TABLET PO SCH (09:00)
[2019-05-15] MEDS: EZETIMIBE 10MG TABLET PO SCH (09:00)
[2019-05-15] MEDS ORDERED: BACTERIOSTATIC SODIUM CHLORIDE 0.9% 30ML VIAL IJ ONE (10:19)
[2019-05-15 12:50] LABS: PLATELET ESTIMATE NORMAL
[2019-05-15] MEDS ORDERED: VANCOMYCIN 750 MG PREMIX 150 ML IV SCH (14:00)
[2019-05-15] MEDS ORDERED: SIMETHICONE 40 MG/0.6 ML 30ML ONE (14:09)
[2019-05-15] MEDS ORDERED: FENTANYL CITRATE/PF 50MCG/ML 2ML VIAL ONE (14:10)
[2019-05-15] MEDS ORDERED: MIDAZOLAM HCL 5 MG/5 ML VIAL ONE (14:10)
[2019-05-15] MEDS ORDERED: FENTANYL CITRATE/PF 50MCG/ML 2ML VIAL IV PRN (14:10)
[2019-05-15] MEDS ORDERED: MIDAZOLAM HCL 5 MG/5 ML VIAL IV PRN (14:10)
[2019-05-15] MEDS: METOCLOPRAMIDE HCL 10MG/2ML VIAL IV SCH ×2 (16:10→22:14)
[2019-05-15] MEDS: ONDANSETRON HCL 4MG/2ML INJ IV PRN (22:11)
[2019-05-15] MEDS: ATORVASTATIN CALCIUM 20MG TABLET PO SCH (22:12)
[2019-05-16] VITALS (28 sets, daily range): BP systolic 81–122; BP diastolic 31–69
[2019-05-16] MEDS: IPRATROPIUM/ALBUTEROL 0.5-3(2.5)MG/3ML NEB HHN SCH ×4 (01:10→20:58)
[2019-05-16] MEDS ORDERED: SODIUM CHLORIDE 0.9% 200 ML IV ONE (01:45)
[2019-05-16] MEDS: METOCLOPRAMIDE HCL 10MG/2ML VIAL IV SCH ×4 (06:01→20:45)
[2019-05-16] MEDS: SUCRALFATE 1 G/10 ML UDC PO SCH ×4 (06:01→20:42)
[2019-05-16] MEDS: BLOOD SUGAR DIAGNOSTIC STRIP TEST SCH ×4 (06:05→20:48)
[2019-05-16 07:02] LABS: HEMATOCRIT. 32.1 % (42.0-52.0); HEMOGLOBIN. 11.1 g/dL (14.0-18.0); MEAN CORPUSCULAR HEMOGLOBIN 35.9 pg (28.0-32.0); MEAN CORPUSCULAR VOLUME 103.6 fL (80.0-94.0); MEAN PLATELET VOLUME 9.4 fl (7.4-10.4); PLATELET 176 x1000/uL (130-400)
[2019-05-16] MEDS: SEVELAMER CARBONATE 800 MG TABLET PO SCH ×3 (07:20→17:23)
[2019-05-16] MEDS: INSULIN LISPRO 100 UNITS/ML SUBCUT SCH ×4 (07:20→20:57)
[2019-05-16 07:37] LABS: CHLORIDE 97 mEq/L (98-107)
[2019-05-16] MEDS: ONDANSETRON HCL 4MG/2ML INJ IV PRN (08:44)
[2019-05-16] MEDS: PANTOPRAZOLE SODIUM 40 MG/VIAL IV SCH (08:44)
[2019-05-16] MEDS: CLOPIDOGREL 75MG TABLET PO SCH (09:26)
[2019-05-16] MEDS: FOLIC ACID/VITAMIN B COMP W-C TABLET PO SCH (09:26)
[2019-05-16] MEDS: EZETIMIBE 10MG TABLET PO SCH (09:26)
[2019-05-16] MEDS: ASPIRIN 81MG EC TABLET PO SCH (09:27)
[2019-05-16 13:28] LABS: PLATELET ESTIMATE NORMAL
[2019-05-16] MEDS: ATORVASTATIN CALCIUM 20MG TABLET PO SCH (20:48)
[2019-05-17] VITALS (16 sets, daily range): BP systolic 2–121; BP diastolic 44–62
[2019-05-17] MEDS: IPRATROPIUM/ALBUTEROL 0.5-3(2.5)MG/3ML NEB HHN SCH ×4 (00:44→20:05)
[2019-05-17] MEDS: METOCLOPRAMIDE HCL 10MG/2ML VIAL IV SCH ×4 (06:14→21:00)
[2019-05-17] MEDS: SUCRALFATE 1 G/10 ML UDC PO SCH ×4 (06:14→21:00)
[2019-05-17] MEDS: BLOOD SUGAR DIAGNOSTIC STRIP TEST SCH ×4 (06:16→21:40)
[2019-05-17 07:10] LABS: HEMOGLOBIN. 10.3 g/dL (14.0-18.0); MEAN CORPUSCULAR HEMOGLOBIN 35.2 pg (28.0-32.0); MEAN CORPUSCULAR VOLUME 102.4 fL (80.0-94.0); MEAN PLATELET VOLUME 9.5 fl (7.4-10.4); PLATELET 172 x1000/uL (130-400); RED BLOOD CELL COUNT 2.93 mill/uL (4.7-6.1); RED CELL DISTRIBUTION WIDTH 18.8 % (11.6-14.6)
[2019-05-17] MEDS: INSULIN LISPRO 100 UNITS/ML SUBCUT SCH ×4 (07:20→21:00)
[2019-05-17 07:23] LABS: CHLORIDE 96 mEq/L (98-107)
[2019-05-17] MEDS: PANTOPRAZOLE SODIUM 40 MG/VIAL IV SCH (08:22)
[2019-05-17] MEDS: FOLIC ACID/VITAMIN B COMP W-C TABLET PO SCH (08:23)
[2019-05-17] MEDS: EZETIMIBE 10MG TABLET PO SCH (08:23)
[2019-05-17] MEDS: ASPIRIN 81MG EC TABLET PO SCH (08:23)
[2019-05-17] MEDS: SEVELAMER CARBONATE 800 MG TABLET PO SCH ×4 (08:23→17:20)
[2019-05-17 19:24] LABS: PLATELET ESTIMATE NORMAL
[2019-05-17] MEDS: ATORVASTATIN CALCIUM 20MG TABLET PO SCH (22:03)
== END 2019-05-17 22:33 | disposition home health service (06) | DRG 252 ==
LOC: ER 08:49 → 8WST 11:02 → EDBEDREQSVC 11:09 → EDBEDREQTM 11:09 → EDBEDREQ 11:09 → ENRESERV 12:25 → 3WST 05-11 14:29
PROVIDERS: ADMIT Hospitalist; ATTEND Hospitalist
PROC: 5A1D70Z Performance of Urinary Filtration, Intermittent, Less than 6 Hours Per Day (ICD-10-PCS; 2019-05-10)
PROC: 047L3ZZ Dilation of Left Femoral Artery, Percutaneous Approach (ICD-10-PCS; principal; 2019-05-11)
PROC: 047K3ZZ Dilation of Right Femoral Artery, Percutaneous Approach (ICD-10-PCS; 2019-05-11)
PROC: B41G1ZZ Fluoroscopy of Left Lower Extremity Arteries using Low Osmolar Contrast (ICD-10-PCS; 2019-05-11)
PROC: B41F1ZZ Fluoroscopy of Right Lower Extremity Arteries using Low Osmolar Contrast (ICD-10-PCS; 2019-05-11)
PROC: 5A1D70Z Performance of Urinary Filtration, Intermittent, Less than 6 Hours Per Day (ICD-10-PCS; 2019-05-13)
PROC: 5A1D70Z Performance of Urinary Filtration, Intermittent, Less than 6 Hours Per Day (ICD-10-PCS; 2019-05-15)
PROC: 0DB78ZX Excision of Stomach, Pylorus, Via Natural or Artificial Opening Endoscopic, Diagnostic (ICD-10-PCS; 2019-05-15)
PROC: 5A1D70Z Performance of Urinary Filtration, Intermittent, Less than 6 Hours Per Day (ICD-10-PCS; 2019-05-17)
DX: I70.262 Atherosclerosis of native arteries of extremities with gangrene, left leg (principal); I50.33 Acute on chronic diastolic (congestive) heart failure; N18.6 End stage renal disease; E43 Unspecified severe protein-calorie malnutrition; K22.11 Ulcer of esophagus with bleeding; K29.81 Duodenitis with bleeding; K29.71 Gastritis, unspecified, with bleeding; I13.2 Hypertensive heart and chronic kidney disease with heart failure and with stage 5 chronic kidney disease, or end stage renal disease; J98.11 Atelectasis; K56.7 Ileus, unspecified; I47.2 Ventricular tachycardia; L97.929 Non-pressure chronic ulcer of unspecified part of left lower leg with unspecified severity; T86.12 Kidney transplant failure; E11.22 Type 2 diabetes mellitus with diabetic chronic kidney disease; E87.5 Hyperkalemia; I45.10 Unspecified right bundle-branch block; D63.1 Anemia in chronic kidney disease; E78.00 Pure hypercholesterolemia, unspecified; G40.909 Epilepsy, unspecified, not intractable, without status epilepticus; E78.5 Hyperlipidemia, unspecified; I25.5 Ischemic cardiomyopathy; E11.621 Type 2 diabetes mellitus with foot ulcer; R13.10 Dysphagia, unspecified; I65.22 Occlusion and stenosis of left carotid artery; L89.312 Pressure ulcer of right buttock, stage 2; L97.529 Non-pressure chronic ulcer of other part of left foot with unspecified severity; Z66 Do not resuscitate; M48.07 Spinal stenosis, lumbosacral region; N40.0 Benign prostatic hyperplasia without lower urinary tract symptoms; M51.27 Other intervertebral disc displacement, lumbosacral region; L60.0 Ingrowing nail; K40.90 Unilateral inguinal hernia, without obstruction or gangrene, not specified as recurrent; I25.10 Atherosclerotic heart disease of native coronary artery without angina pectoris; I08.3 Combined rheumatic disorders of mitral, aortic and tricuspid valves; G47.30 Sleep apnea, unspecified; E78.1 Pure hyperglyceridemia; I70.201 Unspecified atherosclerosis of native arteries of extremities, right leg; Y83.0 Surgical operation with transplant of whole organ as the cause of abnormal reaction of the patient, or of later complication, without mention of misadventure at the time of the procedure; Y92.89 Other specified places as the place of occurrence of the external cause; Z82.49 Family history of ischemic heart disease and other diseases of the circulatory system; Z98.62 Peripheral vascular angioplasty status; Z90.49 Acquired absence of other specified parts of digestive tract; Z87.19 Personal history of other diseases of the digestive system; Z99.2 Dependence on renal dialysis; Z98.42 Cataract extraction status, left eye; Z98.41 Cataract extraction status, right eye; Z95.1 Presence of aortocoronary bypass graft; Z95.5 Presence of coronary angioplasty implant and graft; Z86.73 Personal history of transient ischemic attack (TIA), and cerebral infarction without residual deficits; Z68.26 Body mass index [BMI] 26.0-26.9, adult; Z79.899 Other long term (current) drug therapy; Z79.82 Long term (current) use of aspirin
CPT/HCPCS: 36415; 36600; 37224; 71045; 74018; 75710; 80048; 80202; 82375; 82805; 82962; 83605; 83735; 84100; 84134; 84145; 84443; 84484; 85014; 85018; 85347; 86850; 86900; 88305; 88313; 92610; 93005; 93923; 93970; 93971; 94640; 99285; C1725; C1769; C1893; C1894; C9113; J0461; J1644; J1815; J2250; J2270; J2405; J2543; J2765; J3010; J3370; J3490; J7060; J7620; Q9967

== ENCOUNTER 2019-06-02 20:37 | Inpatient (IN) | payer MEDICARE, MEDICAID ==
[~2019-06-02] VITALS: Ht 165.1 cm; Wt 72.6 kg
[2019-06-02] MEDS ORDERED: DEXTROSE 50% WATER 50ML SYRINGE IV ONE ×4 (20:44→22:30)
[2019-06-02] MEDS ORDERED: DEXT 10% WATER 1,000 ML IV ONE (21:01)
[2019-06-02] MEDS ORDERED: PIPERACILLIN/TAZ 3.375G PREMIX 50 ML IV ONE (21:15)
[2019-06-02] MEDS ORDERED: ONDANSETRON HCL 4MG/2ML INJ IV ONE ×2 (21:30→23:00)
[2019-06-02 21:41] LABS: HEMATOCRIT. 37.3 % (42.0-52.0); HEMOGLOBIN. 11.9 g/dL (14.0-18.0); MEAN CORPUSCULAR HEMOGLOBIN 34.4 pg (28.0-32.0); MEAN CORPUSCULAR VOLUME 107.8 fL (80.0-94.0); MEAN PLATELET VOLUME 10.8 fl (7.4-10.4); PLATELET 182 x1000/uL (130-400); RED BLOOD CELL COUNT 3.46 mill/uL (4.7-6.1); RED CELL DISTRIBUTION WIDTH 19.4 % (11.6-14.6)
[2019-06-02 21:47] LABS: CHLORIDE 97 mEq/L (98-107)
[2019-06-02 21:51] LABS: AMYLASE 34 IU/L (25-115); ETHANOL BLOOD < 10 mg/dL
[2019-06-02 21:55] LABS: CREATINE KINASE 104 IU/L (39-308)
[2019-06-02 21:59] LABS: CREATINE KINASE MB FRACTION 4.4 ng/mL (0.5-3.6)
[2019-06-02] MEDS: VANCOMYCIN 1 G PREMIX 200 ML IV SCH ×2 (22:02→22:20)
[2019-06-02] MEDS ORDERED: GLUCAGON,HUMAN RECOMBINANT 1MG/VIAL IM ONE (22:30)
[2019-06-02 22:34] LABS: PLATELET ESTIMATE NORMAL
[2019-06-02] MEDS ORDERED: OCTREOTIDE 1,000 MCG in SODIUM CHLORIDE 0.9% 100 ML IV STA (22:44)
[2019-06-02] MEDS ORDERED: OCTREOTIDE ACETATE 50 MCG/ML 1ML IV STA (22:44)
[2019-06-02] MEDS ORDERED: PANTOPRAZOLE SODIUM 40 MG/VIAL IV ONE (22:45)
[2019-06-02] MEDS ORDERED: PANTOPRAZOLE 80 MG in SODIUM CHLORIDE 0.9% 100 ML IV SCH ×2 (22:45→23:45)
[2019-06-02] MEDS ORDERED: METOCLOPRAMIDE HCL 10MG/2ML VIAL IV ONE (23:00)
[2019-06-02] MEDS ORDERED: OCTREOTIDE 1000MCG in SODIUM CHLORIDE 0.9% 100ML IV ONE (23:15)
[2019-06-03] VITALS (58 sets, daily range): BP systolic 74–142; BP diastolic 29–93
[2019-06-03 00:59] LABS: MEAN CORPUSCULAR HEMOGLOBIN 34.1 pg (28.0-32.0); MEAN CORPUSCULAR VOLUME 110.8 fL (80.0-94.0); MEAN PLATELET VOLUME 10.5 fl (7.4-10.4); PLATELET 162 x1000/uL (130-400); RED BLOOD CELL COUNT 3.52 mill/uL (4.7-6.1); RED CELL DISTRIBUTION WIDTH 20.4 % (11.6-14.6)
[2019-06-03] MEDS: BLOOD SUGAR DIAGNOSTIC STRIP TEST SCH ×4 (06:20→20:52)
[2019-06-03] MEDS: PHENYTOIN SODIUM EXTENDED 100MG CAPSULE PO SCH ×2 (06:20→17:49)
[2019-06-03] MEDS ORDERED: SUCRALFATE 1 G/10 ML UDC PO SCH (06:30)
[2019-06-03 06:59] LABS: ATYPICAL LYMPHOCYTES 1; PLATELET ESTIMATE NORMAL
[2019-06-03] MEDS ORDERED: SEVELAMER CARBONATE 800 MG TABLET PO SCH (07:00)
[2019-06-03 07:14] LABS: INR 1.5; PROTHROMBIN TIME 15.2 sec (9.6-11.0)
[2019-06-03 07:18] LABS: HEMATOCRIT 38.7 % (42.0-52.0); HEMOGLOBIN 12.6 g/dL (14.0-18.0); MEAN CORPUSCULAR HEMOGLOBIN 34.8 pg (28.0-32.0); MEAN CORPUSCULAR VOLUME 106.7 fL (80.0-94.0); PLATELET 158 x1000/uL (130-400); RED BLOOD CELL COUNT 3.62 mill/uL (4.7-6.1); RED CELL DISTRIBUTION WIDTH 19.5 % (11.6-14.6)
[2019-06-03 07:29] LABS: PHOSPHORUS 3.9 mg/dL (2.5-4.9)
[2019-06-03 07:30] LABS: T4 FREE 1.09 ng/dL (0.76-1.46)
[2019-06-03] MEDS ORDERED: PANTOPRAZOLE 80 MG in SODIUM CHLORIDE 0.9% 100 ML IV SCH (08:00)
[2019-06-03 08:23] LABS: BG BASE EXCESS 0.1 mmol/L (-2.0-2.0); BG CARBOXYHEMOGLOBIN 0.4 % (0.5-1.5); BG DEOXYHEMOGLOBIN 0.7 % (0.0-5.0); BG FRACTION INSPIRED OXYGEN 32; BG HCO3 ACT 24.9 mmol/L (22.0-26.0); BG METHEMOGLOBIN 0.2 % (0.0-1.5); BG OXYGEN SATURATION 99.3 % (92.0-98.5); BG OXYHEMOGLOBIN 98.7 % (94.0-97.0); BG PCO2 41.2 mmHg (35.0-45.0); BG PH 7.399 (7.350-7.450); BG PO2 215.4 mmHg (75.0-100.0); BG SAMPLE SITE RIGHT BRACHIAL; BG TOTAL HEMOGLOBIN 12.9 g/dL (12.0-18.0); BG VENT MODE NASAL CANNULA
[2019-06-03] MEDS: PIPERACILLIN/TAZOBACTAM 2.25 G in DEXTROSE 5% WATER 50 ML IV SCH ×3 (09:11→21:19)
[2019-06-03] MEDS: ASCORBIC ACID 500 MG TABLET PO SCH (09:12)
[2019-06-03] MEDS: ZINC SULFATE 220 MG ( 50 ) CAPSULE PO SCH (09:12)
[2019-06-03] MEDS: FOLIC ACID/VITAMIN B COMP W-C TABLET PO SCH (09:12)
[2019-06-03] MEDS: LAMOTRIGINE 100MG TABLET PO SCH (09:12)
[2019-06-03] MEDS: OCTREOTIDE 1,000 MCG in SODIUM CHLORIDE 0.9% 100 ML IV SCH (09:13)
[2019-06-03] MEDS ORDERED: VANCOMYCIN 500 MG PREMIX 100 ML IV SCH (10:00)
[2019-06-03] MEDS ORDERED: PANTOPRAZOLE 40MG DR TABLET PO SCH (10:30)
[2019-06-03] MEDS: METOCLOPRAMIDE HCL 10MG/2ML VIAL IV SCH ×3 (14:07→23:30)
[2019-06-03] MEDS: SUCRALFATE 1 G/10 ML UDC PO SCH ×3 (14:07→23:30)
[2019-06-03] MEDS ORDERED: ACETAMINOPHEN 325MG TABLET PO PRN (18:15)
[2019-06-03] MEDS ORDERED: HYDROMORPHONE HCL/PF 2MG/ML CPJ IV PRN (18:15)
[2019-06-03] MEDS ORDERED: HYDROCODONE/ACETAMINOPHEN 5/325MG TABLET PO PRN (18:15)
[2019-06-03] MEDS: ATORVASTATIN CALCIUM 20MG TABLET PO SCH (20:51)
[2019-06-03] MEDS: METOPROLOL TARTRATE 50MG TABLET PO SCH (20:52)
[2019-06-03] MEDS ORDERED: LAMOTRIGINE 150MG TABLET PO SCH (21:00)
[2019-06-03] MEDS ORDERED: LATANOPROST 0.005% OPHTH DROPS 2.5ML BOTHEYE SCH (21:00)
[2019-06-03] MEDS ORDERED: DOPAMINE 400MG/250ML PREMIX 250 ML IV PRN (22:30)
[2019-06-04] VITALS (51 sets, daily range): BP systolic 84–138; BP diastolic 34–81
[2019-06-04 00:03] LABS: HEMATOCRIT 39.1 % (42.0-52.0); HEMOGLOBIN 12.5 g/dL (14.0-18.0)
[2019-06-04] MEDS: OCTREOTIDE 1,000 MCG in SODIUM CHLORIDE 0.9% 100 ML IV SCH (04:07)
[2019-06-04 05:19] LABS: HEMATOCRIT. 36.9 % (42.0-52.0); HEMOGLOBIN. 12.1 g/dL (14.0-18.0); MEAN CORPUSCULAR HEMOGLOBIN 35.3 pg (28.0-32.0); MEAN CORPUSCULAR VOLUME 107.2 fL (80.0-94.0); MEAN PLATELET VOLUME 10.3 fl (7.4-10.4); PLATELET 138 x1000/uL (130-400); RED BLOOD CELL COUNT 3.44 mill/uL (4.7-6.1); RED CELL DISTRIBUTION WIDTH 18.9 % (11.6-14.6)
[2019-06-04] MEDS: SUCRALFATE 1 G/10 ML UDC PO SCH ×4 (05:51→23:42)
[2019-06-04] MEDS: PIPERACILLIN/TAZOBACTAM 2.25 G in DEXTROSE 5% WATER 50 ML IV SCH ×3 (05:51→23:09)
[2019-06-04] MEDS: METOCLOPRAMIDE HCL 10MG/2ML VIAL IV SCH ×4 (05:51→23:42)
[2019-06-04] MEDS: PHENYTOIN SODIUM EXTENDED 100MG CAPSULE PO SCH ×2 (05:52→18:25)
[2019-06-04] MEDS: BLOOD SUGAR DIAGNOSTIC STRIP TEST SCH ×4 (05:52→21:00)
[2019-06-04] MEDS ORDERED: PANTOPRAZOLE SODIUM 40 MG/VIAL IV SCH (09:00)
[2019-06-04] MEDS: FOLIC ACID/VITAMIN B COMP W-C TABLET PO SCH (09:02)
[2019-06-04] MEDS: ZINC SULFATE 220 MG ( 50 ) CAPSULE PO SCH (09:02)
[2019-06-04] MEDS: ASCORBIC ACID 500 MG TABLET PO SCH (09:02)
[2019-06-04] MEDS: LAMOTRIGINE 100MG TABLET PO SCH (09:02)
[2019-06-04] MEDS: METOPROLOL TARTRATE 50MG TABLET PO SCH ×2 (09:05→21:00)
[2019-06-04 11:58] LABS: PLATELET ESTIMATE NORMAL
[2019-06-04] MEDS ORDERED: NON FORMULARY PATIENT HOME MED XX SCH (13:45)
[2019-06-04] MEDS ORDERED: BENZOCAINE (ORAJEL) PASTE MM PRN (14:00)
[2019-06-04] MEDS: ASPIRIN 81MG EC TABLET PO SCH (17:05)
[2019-06-04] MEDS ORDERED: PHENYTOIN SODIUM 1,000 MG in SODIUM CHLORIDE 0.9% 100 ML IV NR (18:00)
[2019-06-04 18:17] LABS: ETHANOL BLOOD < 10 mg/dL
[2019-06-04 18:23] LABS: T4 FREE 0.94 ng/dL (0.76-1.46)
[2019-06-04] MEDS ORDERED: DOPAMINE 800MG PREMIX (DOUBLE) 250 ML IV ONE (19:48)
[2019-06-04] MEDS: DOPAMINE 800MG PREMIX (DOUBLE) 250 ML IV PRN (19:59)
[2019-06-04 20:25] LABS: FOLIC ACID (FOLATE) SERUM >20 ng/mL ng/mL (>5.38)
[2019-06-04 20:36] LABS: VITAMIN B12 SERUM >2000 pg/mL pg/mL (211-911)
[2019-06-04] MEDS: ATORVASTATIN CALCIUM 20MG TABLET PO SCH (21:00)
[2019-06-04] MEDS ORDERED: HEPARIN 5000 UNITS/ML VIAL IV SCH (21:15)
[2019-06-04] MEDS ORDERED: HEPARIN 5000 UNITS/ML VIAL IV PRN ×2 (21:15)
[2019-06-04] MEDS ORDERED: HEPARIN 25,000 UNITS PREMIX 500 ML IV PRN (21:15)
[2019-06-04 21:16] LABS: BG CARBOXYHEMOGLOBIN 0.6 % (0.5-1.5); BG DEOXYHEMOGLOBIN 0.8 % (0.0-5.0); BG FRACTION INSPIRED OXYGEN 100; BG HCO3 ACT 23.4 mmol/L (22.0-26.0); BG METHEMOGLOBIN 0.2 % (0.0-1.5); BG OXYGEN SATURATION 99.2 % (92.0-98.5); BG OXYHEMOGLOBIN 98.4 % (94.0-97.0); BG PCO2 47.3 mmHg (35.0-45.0); BG PH 7.313 (7.350-7.450); BG PO2 176.2 mmHg (75.0-100.0); BG SAMPLE SITE RIGHT BRACHIAL; BG TOTAL HEMOGLOBIN 13.1 g/dL (12.0-18.0); BG VENT MODE MASK - NRB
[2019-06-04 22:00] LABS: HEMATOCRIT. 40.9 % (42.0-52.0); HEMOGLOBIN. 12.8 g/dL (14.0-18.0); MEAN CORPUSCULAR HEMOGLOBIN 33.8 pg (28.0-32.0); MEAN CORPUSCULAR VOLUME 107.7 fL (80.0-94.0); MEAN PLATELET VOLUME 10.4 fl (7.4-10.4); PLATELET 177 x1000/uL (130-400); RED CELL DISTRIBUTION WIDTH 19.2 % (11.6-14.6)
[2019-06-04 22:11] LABS: D-DIMER 1.11 mg/L FEU (<0.50); INR 1.3; PROTHROMBIN TIME 12.9 sec (9.6-11.0)
[2019-06-04 22:17] LABS: CREATINE KINASE MB FRACTION 2.9 ng/mL (0.5-3.6)
[2019-06-04 22:26] LABS: PLATELET ESTIMATE NORMAL
[2019-06-04] MEDS ORDERED: SUCRALFATE 1G TABLET PO SCH (22:45)
[2019-06-04] MEDS ORDERED: DEXT 5%/0.9% NACL 1,000 ML IV SCH (22:45)
[2019-06-04] MEDS ORDERED: HEPARIN 5000 UNITS/ML VIAL IV NR (23:00)
[2019-06-04] MEDS ORDERED: HEPARIN BOLUS PRN aPTT <36 IV (23:15)
[2019-06-04] MEDS ORDERED: HEPARIN 25,000 UNITS PREMIX 500 ML IV SCH (23:15)
[2019-06-04] MEDS ORDERED: HEPARIN BOLUS PRN aPTT 37-44 IV (23:15)
[2019-06-04] MEDS: ONDANSETRON HCL 4MG/2ML INJ IV PRN (23:42)
[2019-06-05] VITALS (59 sets, daily range): BP systolic 36–129; BP diastolic 17–87
[2019-06-05] MEDS ORDERED: PANTOPRAZOLE SODIUM 40 MG/VIAL IV SCH (03:00)
[2019-06-05] MEDS: DOPAMINE 800MG PREMIX (DOUBLE) 250 ML IV PRN ×2 (05:03→14:51)
[2019-06-05] MEDS: PIPERACILLIN/TAZOBACTAM 2.25 G in DEXTROSE 5% WATER 50 ML IV SCH (05:06)
[2019-06-05 05:34] LABS: PHOSPHORUS 5.3 mg/dL (2.5-4.9)
[2019-06-05] MEDS: METOCLOPRAMIDE HCL 10MG/2ML VIAL IV SCH ×3 (05:47→13:59)
[2019-06-05] MEDS: PHENYTOIN SODIUM EXTENDED 100MG CAPSULE PO SCH (05:48)
[2019-06-05] MEDS: SUCRALFATE 1 G/10 ML UDC PO SCH ×2 (05:48→12:00)
[2019-06-05 07:44] LABS: HEMATOCRIT. 39.9 % (42.0-52.0); HEMOGLOBIN. 12.6 g/dL (14.0-18.0); MEAN CORPUSCULAR HEMOGLOBIN 33.7 pg (28.0-32.0); MEAN CORPUSCULAR VOLUME 106.5 fL (80.0-94.0); MEAN PLATELET VOLUME 10.7 fl (7.4-10.4); PLATELET 158 x1000/uL (130-400); RED BLOOD CELL COUNT 3.75 mill/uL (4.7-6.1); RED CELL DISTRIBUTION WIDTH 19.1 % (11.6-14.6)
[2019-06-05] MEDS ORDERED: IPRATROPIUM/ALBUTEROL 0.5-3(2.5)MG/3ML NEB HHN PRN (08:45)
[2019-06-05] MEDS: ASPIRIN 81MG EC TABLET PO SCH (08:56)
[2019-06-05] MEDS: LAMOTRIGINE 100MG TABLET PO SCH (08:56)
[2019-06-05] MEDS: FOLIC ACID/VITAMIN B COMP W-C TABLET PO SCH (08:57)
[2019-06-05] MEDS: ZINC SULFATE 220 MG ( 50 ) CAPSULE PO SCH (08:57)
[2019-06-05] MEDS: METOPROLOL TARTRATE 50MG TABLET PO SCH (08:57)
[2019-06-05] MEDS: ASCORBIC ACID 500 MG TABLET PO SCH (08:57)
[2019-06-05] MEDS: ONDANSETRON HCL 4MG/2ML INJ IV PRN (09:04)
[2019-06-05 09:08] LABS: BG BASE EXCESS -4.9 mmol/L (-2.0-2.0); BG CARBOXYHEMOGLOBIN 0.3 % (0.5-1.5); BG DEOXYHEMOGLOBIN 0.8 % (0.0-5.0); BG FRACTION INSPIRED OXYGEN 100; BG HCO3 ACT 20.2 mmol/L (22.0-26.0); BG METHEMOGLOBIN 0.5 % (0.0-1.5); BG OXYGEN SATURATION 99.2 % (92.0-98.5); BG OXYHEMOGLOBIN 98.4 % (94.0-97.0); BG PH 7.344 (7.350-7.450); BG PO2 189.6 mmHg (75.0-100.0); BG SAMPLE SITE RIGHT BRACHIAL; BG TOTAL HEMOGLOBIN 13.4 g/dL (12.0-18.0); BG VENT MODE MASK - NRB
[2019-06-05] MEDS ORDERED: LIDOCAINE HCL 1% 20ML VIAL (Pyxis) INJ ONE (09:10)
[2019-06-05] MEDS ORDERED: SODIUM CHLORIDE 0.9% 250 ML IV ONE (10:45)
[2019-06-05] MEDS: PHENYLEPHRINE 40 MG in DEXT 5% WATER 246 ML IV PRN ×2 (11:17→15:43)
[2019-06-05] MEDS: BLOOD SUGAR DIAGNOSTIC STRIP TEST SCH ×2 (11:30→17:25)
[2019-06-05] MEDS ORDERED: IPRATROPIUM/ALBUTEROL 0.5-3(2.5)MG/3ML NEB HHN SCH (12:00)
[2019-06-05] MEDS ORDERED: VANCOMYCIN 1 G PREMIX 200 ML IV NR (12:00)
[2019-06-05] MEDS ORDERED: VECURONIUM BROMIDE 10 MG/VIAL IV ONE (12:22)
[2019-06-05] MEDS ORDERED: DEXTROSE 50% WATER 50ML VIAL IV ONE (12:22)
[2019-06-05] MEDS ORDERED: SODIUM BICARBONATE 8.4% MEQ/ML 50ML VIAL IV ONE (12:22)
[2019-06-05] MEDS ORDERED: CALCIUM CHLORIDE 1GM/10ML SYR IV ONE (12:22)
[2019-06-05] MEDS ORDERED: EPINEPHRINE 0.1MG/ML (1:10,000) 10ML SYR ONE (12:22)
[2019-06-05] MEDS ORDERED: ATROPINE SULFATE 1MG/10ML SYR ONE (12:22)
[2019-06-05] MEDS ORDERED: ETOMIDATE 2MG/ML 10ML VIAL IV ONE (12:22)
[2019-06-05 12:37] LABS: PLATELET ESTIMATE NORMAL
[2019-06-05] MEDS ORDERED: NOREPINEPHRINE 16 MG in DEXTROSE 5% WATER 250 ML IV NR (12:45)
[2019-06-05] MEDS ORDERED: MEROPENEM 500 MG in SODIUM CHLORIDE 0.9% 50 ML IV SCH (13:00)
[2019-06-05 13:27] LABS: BG BASE EXCESS -5.3 mmol/L (-2.0-2.0); BG CARBOXYHEMOGLOBIN 0.2 % (0.5-1.5); BG FRACTION INSPIRED OXYGEN 100; BG HCO3 ACT 18.6 mmol/L (22.0-26.0); BG METHEMOGLOBIN 0.2 % (0.0-1.5); BG OXYHEMOGLOBIN 98.6 % (94.0-97.0); BG PCO2 31.4 mmHg (35.0-45.0); BG PO2 154.4 mmHg (75.0-100.0); BG SAMPLE SITE RIGHT FEMORAL; BG TIDAL VOLUME(mL) 500 mL; BG TOTAL HEMOGLOBIN 12.5 g/dL (12.0-18.0); BG VENT MODE VENT - A/C; BG VENT RATE 12 set
[2019-06-05] MEDS ORDERED: NOREPINEPHRINE 32 MG in DEXT 5% WATER 468 ML IV PRN (16:00)
[2019-06-05] MEDS ORDERED: MORPHINE SULFATE 2 MG/ML CPJ (NOT FOR IM USE) IV PRN (17:45)
[2019-06-05] MEDS ORDERED: POLYVINYL ALCOHOL OPHTH DROPS 15ML BOTHEYE PRN (18:00)
[2019-06-05] MEDS ORDERED: POLYVINYL ALCOHOL OPHTH DROPS 15ML BOTHEYE SCH (18:00)
[2019-06-05] MEDS ORDERED: PROPYLENE GLYCOL/PEG 400 OPTH DROPS OP SCH (18:00)
== END 2019-06-05 21:50 | disposition expired | DRG 871 ==
LOC: ER 21:02 → MICUNO 06-03 00:48 → EDBEDREQ 06-03 00:51 → ENRESERV 06-03 03:46 → MICUNO 06-03 04:30
PROVIDERS: ADMIT Internal Medicine Endocrinology, Diabetes & Metabolism; ATTEND Internal Medicine Endocrinology, Diabetes & Metabolism
PROC: 5A12012 Performance of Cardiac Output, Single, Manual (ICD-10-PCS; principal; 2019-06-05)
PROC: B54MZZA Ultrasonography of Right Upper Extremity Veins, Guidance (ICD-10-PCS; 2019-06-05)
PROC: 05HY33Z Insertion of Infusion Device into Upper Vein, Percutaneous Approach (ICD-10-PCS; 2019-06-05)
PROC: 5A09357 Assistance with Respiratory Ventilation, Less than 24 Consecutive Hours, Continuous Positive Airway Pressure (ICD-10-PCS; 2019-06-05)
DX: A41.9 Sepsis, unspecified organism (principal); N18.6 End stage renal disease; E43 Unspecified severe protein-calorie malnutrition; K29.71 Gastritis, unspecified, with bleeding; G92 Toxic encephalopathy; J96.00 Acute respiratory failure, unspecified whether with hypoxia or hypercapnia; K22.11 Ulcer of esophagus with bleeding; R65.21 Severe sepsis with septic shock; E11.52 Type 2 diabetes mellitus with diabetic peripheral angiopathy with gangrene; E87.2 Acidosis; D68.9 Coagulation defect, unspecified; I13.2 Hypertensive heart and chronic kidney disease with heart failure and with stage 5 chronic kidney disease, or end stage renal disease; J98.11 Atelectasis; N25.81 Secondary hyperparathyroidism of renal origin; T86.12 Kidney transplant failure; I46.9 Cardiac arrest, cause unspecified; E11.22 Type 2 diabetes mellitus with diabetic chronic kidney disease; E11.649 Type 2 diabetes mellitus with hypoglycemia without coma; K31.84 Gastroparesis; I25.10 Atherosclerotic heart disease of native coronary artery without angina pectoris; E78.00 Pure hypercholesterolemia, unspecified; D63.8 Anemia in other chronic diseases classified elsewhere; E11.43 Type 2 diabetes mellitus with diabetic autonomic (poly)neuropathy; I25.5 Ischemic cardiomyopathy; E11.42 Type 2 diabetes mellitus with diabetic polyneuropathy; E78.5 Hyperlipidemia, unspecified; E83.52 Hypercalcemia; E86.1 Hypovolemia; G40.909 Epilepsy, unspecified, not intractable, without status epilepticus; G47.30 Sleep apnea, unspecified; I45.10 Unspecified right bundle-branch block; I50.9 Heart failure, unspecified; I65.22 Occlusion and stenosis of left carotid artery; I08.3 Combined rheumatic disorders of mitral, aortic and tricuspid valves; K14.6 Glossodynia; M48.061 Spinal stenosis, lumbar region without neurogenic claudication; N40.0 Benign prostatic hyperplasia without lower urinary tract symptoms; Y83.0 Surgical operation with transplant of whole organ as the cause of abnormal reaction of the patient, or of later complication, without mention of misadventure at the time of the procedure; K57.90 Diverticulosis of intestine, part unspecified, without perforation or abscess without bleeding; M51.27 Other intervertebral disc displacement, lumbosacral region; N28.1 Cyst of kidney, acquired; Z66 Do not resuscitate; Z86.73 Personal history of transient ischemic attack (TIA), and cerebral infarction without residual deficits; Z87.19 Personal history of other diseases of the digestive system; Z87.442 Personal history of urinary calculi; Z91.14 Patient's other noncompliance with medication regimen; Z91.5 Personal history of self-harm; Z68.26 Body mass index [BMI] 26.0-26.9, adult; Z95.1 Presence of aortocoronary bypass graft; Z95.5 Presence of coronary angioplasty implant and graft; Z98.62 Peripheral vascular angioplasty status; Z99.2 Dependence on renal dialysis; Z79.4 Long term (current) use of insulin; Z79.899 Other long term (current) drug therapy; Z83.3 Family history of diabetes mellitus; Z82.3 Family history of stroke; Z82.49 Family history of ischemic heart disease and other diseases of the circulatory system; Y92.89 Other specified places as the place of occurrence of the external cause
CPT/HCPCS: 36415; 36600; 71045; 73630; 76937; 78580; 80048; 80185; 80202; 80307; 80320; 82140; 82150; 82306; 82375; 82533; 82550; 82553; 82607; 82746; 82805; 82962; 83036; 83540; 83550; 83605; 83735; 83880; 84100; 84134; 84145; 84439; 84443; 84481; 84484; 85014; 85018; 85027; 85379; 86850; 86900; 92610; 93005; 93306; 93970; 94660; 99291; C1725; C9113; J0461; J1165; J1170; J1265; J1610; J1644; J2185; J2354; J2370; J2405; J2543; J2765; J3370; J3490; J7040; J7042; J7050; J7060; J7620; G0480